=== PATIENT | male | born 1940 | race Caucasian/White ===

== ENCOUNTER 2016-04-26 13:37 | Inpatient (IN) | payer MEDICARE ==
[~2016-04-26] VITALS: Ht 182.9 cm; Wt 59.4 kg
[2016-04-26 14:05] VITALS: BP_SYST 144; RESP 16; TEMP 97.5
[2016-04-26] MEDS ORDERED: NITROGLYCERIN SL 0.4 MG TAB SL PRN (14:30)
[2016-04-26] MEDS ORDERED: ZOLPIDEM 5 MG TAB PO PRN (14:30)
[2016-04-26] MEDS ORDERED: ALU/MAG/SIM 30 ML UDC PO PRN (14:30)
[2016-04-26] MEDS ORDERED: ACETAMINOPHEN 325 MG TAB PO PRN (14:30)
[2016-04-26] MEDS ORDERED: MAG HYDROX 30 ML UDC PO PRN (14:30)
[2016-04-26] MEDS ORDERED: ONDANSETRON 4 MG VIAL IV PRN (14:30)
[2016-04-26] MEDS: PANTOPRAZOLE 40 MG TAB PO SCH (16:00)
[2016-04-26] MEDS: METOPROLOL XL 50 MG TAB PO SCH (16:00)
[2016-04-26] MEDS: TIZANIDINE 4 MG TAB PO SCH ×2 (16:01→23:00)
[2016-04-26] MEDS: OXYCODONE/APAP 5/325 TAB PO PRN (16:01)
[2016-04-26] MEDS: PHENYTOIN 100 MG CAP PO SCH ×2 (16:03→23:00)
[2016-04-26 21:29] VITALS: BP_SYST 98; RESP 16; TEMP 97.5
[2016-04-27] VITALS (12 sets, daily range): BP systolic 83–173; RESP 18–24; TEMP 97.7–98.6; Ht 182.9 cm; Wt 59.4 kg
[2016-04-27] MEDS: **NOTE TO NURSE**PLEASE ENTER HT AND WT FOR ANTIBIOTIC DOSING XX SCH (01:24)
[2016-04-27] MEDS ORDERED: PHARMACY TO DOSE MERREM IV SCH (01:30)
[2016-04-27] MEDS: OXYCODONE/APAP 5/325 TAB PO PRN ×2 (02:57→13:24)
[2016-04-27] MEDS: PANTOPRAZOLE 40 MG TAB PO SCH (06:31)
[2016-04-27] MEDS: DEXTROSE 5% SALINE 0.45% 1,000 ML IV SCH (06:39)
[2016-04-27] MEDS ORDERED: MISSING DOSE XX ONE ×2 (08:10→10:40)
[2016-04-27] MEDS: METOPROLOL XL 50 MG TAB PO SCH (10:40)
[2016-04-27] MEDS: PHENYTOIN 100 MG CAP PO SCH ×2 (11:02→21:05)
[2016-04-27] MEDS: TIZANIDINE 4 MG TAB PO SCH ×3 (11:02→21:05)
[2016-04-27] MEDS: DUONEB INH SCH ×3 (14:59→23:00)
[2016-04-27] MEDS: METHYLPRED SOD SUCC 40 MG VIAL IV SCH (16:03)
[2016-04-27] MEDS: NEB-BROVANA 15 MCG/2 ML INH SCH (19:01)
[2016-04-28] VITALS (7 sets, daily range): BP systolic 90–145; RESP 16–20; TEMP 97.6–99
[2016-04-28] MEDS: METHYLPRED SOD SUCC 40 MG VIAL IV SCH ×3 (00:07→15:36)
[2016-04-28] MEDS: DEXTROSE 5% SALINE 0.45% 1,000 ML IV SCH ×2 (00:15→16:19)
[2016-04-28] MEDS: OXYCODONE/APAP 5/325 TAB PO PRN ×2 (02:09→15:36)
[2016-04-28] MEDS: PANTOPRAZOLE 40 MG TAB PO SCH (06:07)
[2016-04-28] MEDS: DUONEB INH SCH ×4 (07:00→23:00)
[2016-04-28] MEDS: NEB-BROVANA 15 MCG/2 ML INH SCH ×3 (07:00→18:44)
[2016-04-28] MEDS ORDERED: MISSING DOSE XX ONE (09:15)
[2016-04-28] MEDS: METOPROLOL XL 50 MG TAB PO SCH (10:03)
[2016-04-28] MEDS: PHENYTOIN 100 MG CAP PO SCH ×2 (10:03→20:15)
[2016-04-28] MEDS: TIZANIDINE 4 MG TAB PO SCH ×3 (10:03→20:15)
[2016-04-29] MEDS: METHYLPRED SOD SUCC 40 MG VIAL IV SCH ×3 (01:59→15:35)
[2016-04-29 02:58] VITALS: BP_SYST 141; RESP 18; TEMP 98.9
[2016-04-29] MEDS: DUONEB INH SCH ×4 (05:36→22:37)
[2016-04-29] MEDS: NEB-BROVANA 15 MCG/2 ML INH SCH (05:37)
[2016-04-29] MEDS: PANTOPRAZOLE 40 MG TAB PO SCH (06:08)
[2016-04-29] MEDS: OXYCODONE/APAP 5/325 TAB PO PRN ×3 (07:47→21:52)
[2016-04-29 08:18] VITALS: BP_SYST 123; RESP 18; TEMP 98.3
[2016-04-29] MEDS: METOPROLOL XL 50 MG TAB PO SCH (09:00)
[2016-04-29] MEDS: TIZANIDINE 4 MG TAB PO SCH ×3 (09:00→20:49)
[2016-04-29] MEDS: PHENYTOIN 100 MG CAP PO SCH ×2 (09:00→20:50)
[2016-04-29 11:39] VITALS: BP_SYST 136; RESP 18; TEMP 98.1
[2016-04-29 15:56] VITALS: BP_SYST 138; RESP 18; TEMP 98.2
[2016-04-29] MEDS: NEB-BUDESONIDE 0.25 MG INH SCH (17:16)
[2016-04-29 19:05] VITALS: BP_SYST 120; RESP 20; TEMP 97.9
[2016-04-29 23:12] VITALS: BP_SYST 111; RESP 18; TEMP 97.7
[2016-04-30] VITALS (7 sets, daily range): BP systolic 121–150; RESP 16–20; TEMP 97.4–98.2
[2016-04-30] MEDS: METHYLPRED SOD SUCC 40 MG VIAL IV SCH ×3 (00:12→17:02)
[2016-04-30] MEDS: SODIUM CHLORIDE 0.9% FLUSH BAG 500 ML IV SCH (05:18)
[2016-04-30] MEDS: NEB-BROVANA 15 MCG/2 ML INH SCH ×2 (06:12→16:57)
[2016-04-30] MEDS: DUONEB INH SCH ×4 (06:12→22:38)
[2016-04-30] MEDS: NEB-BUDESONIDE 0.25 MG INH SCH ×2 (06:13→16:58)
[2016-04-30] MEDS: DEXTROSE 5% SALINE 0.45% 1,000 ML IV SCH ×2 (06:16→20:39)
[2016-04-30] MEDS: PANTOPRAZOLE 40 MG TAB PO SCH (06:16)
[2016-04-30] MEDS: METOPROLOL XL 25 MG TAB PO SCH (08:05)
[2016-04-30] MEDS: TIZANIDINE 4 MG TAB PO SCH ×3 (08:11→20:40)
[2016-04-30] MEDS: PHENYTOIN 100 MG CAP PO SCH ×2 (08:11→20:39)
[2016-04-30] MEDS: OXYCODONE/APAP 5/325 TAB PO PRN ×2 (11:32→20:50)
[2016-05-01] VITALS (14 sets, daily range): BP systolic 98–150; RESP 16–18; TEMP 97.2–98.2
[2016-05-01] MEDS: METHYLPRED SOD SUCC 40 MG VIAL IV SCH ×3 (00:21→16:14)
[2016-05-01] MEDS: SODIUM CHLORIDE 0.9% FLUSH BAG 500 ML IV SCH ×2 (00:22→22:20)
[2016-05-01] MEDS: PANTOPRAZOLE 40 MG TAB PO SCH (06:44)
[2016-05-01] MEDS: NEB-BROVANA 15 MCG/2 ML INH SCH ×2 (06:57→18:34)
[2016-05-01] MEDS: DUONEB INH SCH ×4 (06:57→23:00)
[2016-05-01] MEDS: NEB-BUDESONIDE 0.25 MG INH SCH ×2 (06:57→18:34)
[2016-05-01] MEDS: PHENYTOIN 100 MG CAP PO SCH ×2 (08:13→22:21)
[2016-05-01] MEDS: TIZANIDINE 4 MG TAB PO SCH ×3 (08:13→22:21)
[2016-05-01] MEDS: METOPROLOL XL 25 MG TAB PO SCH (08:13)
[2016-05-01] MEDS ORDERED: DIPHENHYDRAMINE 25 MG CAP PO ONE (08:33)
[2016-05-01] MEDS ORDERED: ACETAMINOPHEN 325 MG TAB PO ONE (08:34)
[2016-05-01] MEDS ORDERED: Furosemide 20 MG/2 ML VIAL IV ONE (09:00)
[2016-05-01] MEDS: OXYCODONE/APAP 5/325 TAB PO PRN (22:41)
[2016-05-02] VITALS (10 sets, daily range): BP systolic 97–150; RESP 14–18; TEMP 97.5–98.4
[2016-05-02] MEDS: METHYLPRED SOD SUCC 40 MG VIAL IV SCH ×2 (00:17→08:00)
[2016-05-02] MEDS: SODIUM CHLORIDE 0.9% FLUSH BAG 500 ML IV SCH (02:09)
[2016-05-02] MEDS: DEXTROSE 5% SALINE 0.45% 1,000 ML IV SCH (04:33)
[2016-05-02] MEDS: PANTOPRAZOLE 40 MG TAB PO SCH (06:02)
[2016-05-02] MEDS: NEB-BUDESONIDE 0.25 MG INH SCH (08:14)
[2016-05-02] MEDS: NEB-BROVANA 15 MCG/2 ML INH SCH (08:14)
[2016-05-02] MEDS: DUONEB INH SCH (08:14)
[2016-05-02] MEDS: PHENYTOIN 100 MG CAP PO SCH (09:47)
[2016-05-02] MEDS: TIZANIDINE 4 MG TAB PO SCH (09:47)
[2016-05-02] MEDS: METOPROLOL XL 25 MG TAB PO SCH (09:47)
== END 2016-05-02 13:22 | disposition home health service (06) | DRG 190 ==
LOC: ENRESERVTM → ENRESERVDT → ENPENDDIS 13:37 → 3S 13:37 → PCU2 04-27 21:23 → 3NT 04-30 13:13
PROVIDERS: ADMIT Internal Medicine Hematology & Oncology; ATTEND Internal Medicine Hematology & Oncology
DX: J44.0 Chronic obstructive pulmonary disease with (acute) lower respiratory infection (principal); J18.9 Pneumonia, unspecified organism; D61.810 Antineoplastic chemotherapy induced pancytopenia; C90.00 Multiple myeloma not having achieved remission; B37.0 Candidal stomatitis; D64.81 Anemia due to antineoplastic chemotherapy; R00.1 Bradycardia, unspecified; J44.1 Chronic obstructive pulmonary disease with (acute) exacerbation; G40.909 Epilepsy, unspecified, not intractable, without status epilepticus; R00.0 Tachycardia, unspecified; J45.909 Unspecified asthma, uncomplicated; R07.89 Other chest pain; H92.09 Otalgia, unspecified ear; N45.1 Epididymitis; Z86.73 Personal history of transient ischemic attack (TIA), and cerebral infarction without residual deficits; Z87.891 Personal history of nicotine dependence
CPT/HCPCS: 36430; 71020; 71110; 71120; 80048; 80053; 81001; 82553; 84484; 85025; 86738; 86850; 86900; 86901; 86923; 86945; 87040; 87071; 87088; 93005; 94640; 94799